=== PATIENT | male | born 1965 | race Caucasian/White ===

== ENCOUNTER → 2016-11-22 | Outpatient (CLI) | payer OTHER ==
[~2016-11-22] MED LIST: ELIQUIS2.5 MG PO; GABAPENTIN800 MG PO; PERCOCET 10-321 EACH PO; VIREAD300 MG PO
== END ==
LOC: US 09:30
DX: K74.60 Unspecified cirrhosis of liver (principal)
CPT/HCPCS: 76700

== ENCOUNTER → 2020-10-17 | Outpatient (CLI) | payer OTHER ==
[~2020-10-17] MED LIST changes: +AMRIX15 MG PO; +COLACE100 MG PO; +OMEPRAZOLE40 MG PO; +ROXICODONE5 MG PO; +ULTRAM50 MG PO; +VITAMIN D250000 UNIT PO
== END ==
LOC: EXRD 10:21
DX: M54.5 Low back pain (principal); M25.551 Pain in right hip; M16.11 Unilateral primary osteoarthritis, right hip; M47.816 Spondylosis without myelopathy or radiculopathy, lumbar region; W55.22XA Struck by cow, initial encounter
CPT/HCPCS: 72100; 73502; 73560

== ENCOUNTER → 2021-07-03 | Outpatient (CLI) | payer OTHER | LOC: KOH-I 08:29 | DX: K74.60 Unspecified cirrhosis of liver (principal) | CPT/HCPCS: 76705 ==

== ENCOUNTER → 2021-12-31 | Outpatient (CLI) | payer OTHER | LOC: EXRD 08:44 | DX: K74.60 Unspecified cirrhosis of liver (principal); B18.1 Chronic viral hepatitis B without delta-agent | CPT/HCPCS: 76705 ==